=== PATIENT | female | born 1930 | race Caucasian/White ===

== ENCOUNTER 2017-05-05 15:06 | Inpatient (IN) | payer OTHER, MEDICAID ==
[~2017-05-05] VITALS: Ht 157.5 cm; Wt 52.2 kg
[2017-05-05 15:06] VITALS: BP_SYST 140
[~2017-05-05 15:06] MED LIST: ACET325T53 PO; ALLO100T91 PO; AMIN30LI2 PO; ANT30 PO; BETA1TAB20 PO; BISA10SU8 RC; CARB-61 PO; CARV6.2554 PO; CLOP75TA2 PO; DOCU-144 PO; DONE10TA44 PO; FENO48TA2 PO; FURO-150 PO; GLUC1VIA4 IM; HYDR-1189 PO; LOSA25TA3 PO; MEMA5TAB PO; MULT-300 PO; NA P118E RC; NUT.237L28 PO; POTA20TA83 PO; REM15 PO; ROSU20TA PO; SENN8.6T19 PO
--- NOTE | 2017-05-05 15:06 | NUR ---
BIB BLS from [facility]. Placed in room 03. Placed on compliance monitor, blood pressure machine and pulse oximeter. To gown for exam. Side rails up. Report given to ANNIE Beard.
--- NOTE | 2017-05-05 15:10 | NUR ---
Patient is brought in by bls from [facility] for rectal pain and foul smelling brown stool. Patient denies any pain. Abdomen is soft and round. Denies any pain. No other complaints/injuries per patient or as noted. Will continue to monitor.
--- NOTE | 2017-05-05 15:40 | NUR ---
GENNY Horton at Bedside.
[2017-05-05] MEDS ORDERED: REM15 PO (15:51)
[2017-05-05] MEDS ORDERED: ROSU20TA PO (15:51)
[2017-05-05] MEDS ORDERED: ASCO500T20 PO (15:51)
[2017-05-05] MEDS ORDERED: AMIN30LI2 PO (15:51)
[2017-05-05] MEDS ORDERED: MAGN400O4 PO (15:51)
[2017-05-05] MEDS ORDERED: PRO40 PO (15:51)
[2017-05-05] MEDS ORDERED: GLUC1VIA4 IM (15:51)
[2017-05-05] MEDS ORDERED: ANT30 PO (15:51)
--- NOTE | 2017-05-05 15:58 | NUR ---
# 20 gauge angiocath placed to Forearm. Use of asceptic technique. Opsite placed over site. Blood return noted. Blood for lab drawn from site. Flushed with 10 cc of normal saline. No evidence of infiltration noted. Patient tolerated well.
[2017-05-05 16:19] LABS: BASOPHILS % (AUTO) 0.4 % (0.0-2.0); EOSINOPHILS # (AUTO) 0.2 K/uL (0.0-0.4); HEMATOCRIT 29.8 % (36-48); HEMOGLOBIN 9.6 g/dL (12.0-16.0); LYMPHOCYTES # (AUTO) 0.9 K/uL (1.0-5.5); LYMPHOCYTES % (AUTO) 13.2 % (20.5-51.5); MEAN CORPUSCULAR HEMOGLOBIN 30 pg (27-31); MEAN CORPUSCULAR HGB CONC 32 % (32-36); MEAN CORPUSCULAR VOLUME 92 fL (79.0-98.0); MONOCYTES # (AUTO) 0.3 K/uL (0.0-1.0); MONOCYTES % (AUTO) 4.1 % (1.7-9.3); NEUTROPHILS # (AUTO) 5.4 K/uL (1.8-7.7); NEUTROPHILS % (AUTO) 79.3 % (40.0-70.0); PLATELET COUNT (AUTO) 205 K/uL (130-430); RED BLOOD CELL COUNT(AUTO) 3.24 MIL/uL (4.2-6.2); RED CELL DISTRIBUTION WIDTH 14.9 % (9.0-15.0); WHITE BLOOD COUNT (AUTO) 6.8 K/uL (4.8-10.8)
[2017-05-05 16:32] LABS: ANION GAP 6 (5-15); CALCIUM 9.2 mg/dL (8.4-11.0); CHLORIDE 110 mmol/L (98-107); CREATININE 2.94 mg/dL (0.55-1.30); GLUCOSE 183 mg/dL (70-99); POTASSIUM 4.6 mmol/L (3.5-5.1); SODIUM SERUM 140 mmol/L (136-145)
[2017-05-05 16:34] LABS: INR 1.1 (0.8-1.2); PROTHROMBIN TIME 11.8 SECS (9.5-12.5)
[2017-05-05 16:36] LABS: ALANINE AMINOTRANSFERASE 6 U/L (12-78); ALBUMIN 3.1 g/dL (3.4-4.8); AMYLASE 51 U/L (0-100); ASPARTATE AMINOTRANSFERASE 16 U/L (10-37); LIPASE 184 U/L (73-393); TOTAL BILIRUBIN 0.3 mg/dL (0.0-1.0); TOTAL PROTEIN, SERUM 6.8 g/dL (6.4-8.3)
[2017-05-05 16:42] LABS: UREA NITROGEN, BLOOD 107 mg/dL (8-21)
--- NOTE | 2017-05-05 17:02 | NUR ---
Patient resting quietly. No acute distress noted. Vital signs within normal range.
[2017-05-05] MEDS ORDERED: D5/0.45 NS 1,000 ML IV ONE (18:15)
[2017-05-05] MEDS ORDERED: ACETAMINOPHEN 325 MG TABLET PO PRN (18:15)
[2017-05-05] MEDS ORDERED: ONDANSETRON HCL 4 MG/2 ML VIAL IVP PRN (18:15)
[2017-05-05] MEDS ORDERED: NA PHOS,M-B/NA PHOS,DI-BA 118 ML (FLEET ENEMA) RC PRN (18:15)
[2017-05-05] MEDS ORDERED: BISACODYL 10 MG/SUPPOSITORY RC PRN (18:15)
--- NOTE | 2017-05-05 18:35 | NUR ---
Patient pulled out #20 guage angiocath in the Left Forearm. Started new IV site. # 20 gauge angiocath placed to left upper arm. Use of asceptic technique. Opsite placed over site. Blood return noted. Blood for lab drawn from site. Flushed with 10 cc of normal saline. No evidence of infiltration noted. Patient tolerated well.
--- NOTE | 2017-05-05 19:08 | NUR ---
Patient will be admitted to care of Dr. Blanco. Admitted to Telemetry unit. Will go to room 121 A. Belongings list completed. Summary report printed. Report will be given at bedside.
--- NOTE | 2017-05-05 19:08 | NUR ---
Admission Note Received patient from ER with diagnosis of acute kidney injury and chronic kidney disease. Initial Plan of Care discussed-patient verbalized understanding. Family at bedside. Oriented to room, call light, pain management and safety.
[2017-05-05 19:28] VITALS: BP_SYST 137
[2017-05-05] MEDS: LORazepam 2 MG/ML VIAL IVP PRN (20:42)
[2017-05-05] MEDS: DONEPEZIL HCL 5 MG TABLET (ARICEPT) PO SCH (20:51)
[2017-05-05] MEDS: MIRTAZAPINE 15 MG TABLET PO SCH (20:53)
[2017-05-05] MEDS: MEMANTINE HCL 5 MG TABLET PO SCH (20:53)
[2017-05-05] MEDS: CARBIDOPA/LEVODOPA 25/100 MG TABLET PO SCH (20:54)
[2017-05-05] MEDS: metroNIDAZOLE 500 MG TABLET PO SCH (20:56)
[2017-05-05] MEDS: CARVEDILOL 6.25 MG TABLET (COREG) PO SCH (20:56)
[2017-05-05] MEDS ORDERED: ROSUVASTATIN CALCIUM 5 MG/TAB (CRESTOR) PO SCH (21:00)
[2017-05-05] MEDS: ATORVASTATIN 20 MG TABLET PO SCH (21:00)
[2017-05-05] MEDS: DOCUSATE SODIUM 100 MG CAPSULE PO SCH (21:00)
[2017-05-05] MEDS: LACTOBACILLUS RHAMNOSUS GG 1 CAP CAPSULE PO SCH (21:00)
[2017-05-05] MEDS ORDERED: NUT TX GLUC INTOLER LAC FR SOY PO SCH (21:00)
[2017-05-05] MEDS: PANTOPRAZOLE SODIUM 40 MG TAB PO SCH (21:00)
--- NOTE | 2017-05-05 21:30 | NUR ---
Rounds Pt refused some of her 2100 meds. Explained risk and benefits but patient is confuse.
--- NOTE | 2017-05-05 23:30 | NUR ---
Rounds Provided snack to pt d/t c/o being hungry. No s/s of any distress noted. Bed in low position with call light within reach, will cont to monitor.
[2017-05-06] MEDS: NORMAL SALINE 5 ML DISP.SYRIN IVF SCH ×4 (00:53→21:20)
--- NOTE | 2017-05-06 01:30 | NUR ---
Partial bed bath Partial bed bath was rendered to pt with Soo SINCLAIR. No s/s of any distress noted at this time, will cont to monitor.
--- NOTE | 2017-05-06 03:31 | NUR ---
Rounds Patient is comfortably resting in bed at this time. No s/s of any distress noted. Bed in low position with side rails up x3. Call light within reach, will cont to monitor.
[2017-05-06 04:45] VITALS: BP_SYST 138
[2017-05-06 06:32] LABS: BASOPHILS % (AUTO) 0.6 % (0.0-2.0); EOSINOPHILS # (AUTO) 0.4 K/uL (0.0-0.4); EOSINOPHILS % (AUTO) 5.7 % (0.0-4.0); HEMATOCRIT 30.6 % (36-48); HEMOGLOBIN 9.7 g/dL (12.0-16.0); LYMPHOCYTES % (AUTO) 13.8 % (20.5-51.5); MEAN CORPUSCULAR HEMOGLOBIN 29 pg (27-31); MEAN CORPUSCULAR HGB CONC 32 % (32-36); MEAN CORPUSCULAR VOLUME 91 fL (79.0-98.0); MONOCYTES # (AUTO) 0.5 K/uL (0.0-1.0); MONOCYTES % (AUTO) 6.7 % (1.7-9.3); NEUTROPHILS # (AUTO) 5.2 K/uL (1.8-7.7); NEUTROPHILS % (AUTO) 73.2 % (40.0-70.0); PLATELET COUNT (AUTO) 214 K/uL (130-430); RED BLOOD CELL COUNT(AUTO) 3.37 MIL/uL (4.2-6.2); RED CELL DISTRIBUTION WIDTH 14.7 % (9.0-15.0); WHITE BLOOD COUNT (AUTO) 7.1 K/uL (4.8-10.8)
[2017-05-06 06:50] LABS: ALANINE AMINOTRANSFERASE 6 U/L (12-78); ANION GAP 6 (5-15); ASPARTATE AMINOTRANSFERASE 18 U/L (10-37); CALCIUM 9.2 mg/dL (8.4-11.0); CHLORIDE 108 mmol/L (98-107); CREATININE 2.63 mg/dL (0.55-1.30); GLUCOSE 194 mg/dL (70-99); POTASSIUM 4.2 mmol/L (3.5-5.1); SODIUM SERUM 140 mmol/L (136-145); TOTAL BILIRUBIN 0.3 mg/dL (0.0-1.0); TOTAL PROTEIN, SERUM 6.5 g/dL (6.4-8.3); UREA NITROGEN, BLOOD 94 mg/dL (8-21)
--- NOTE | 2017-05-06 07:07 | NUR ---
Final Rounds Patient is resting comfortably in bed at this time. No s/s of any distress noted. All needs met and anticipated by [facility] nurses. Bed in low position with side rails up x3. Call light in reach, will endorse.
[2017-05-06 08:00] VITALS: BP_SYST 132
--- NOTE | 2017-05-06 08:00 | NUR ---
OPENING NOTES PATIENT IS A/OX2, ONLY SPEAKS PERUVIAN, AND BECAME A LITTLE AGGRESSIVE/COMBATIVE WITH ME DURING MY ASSESSMENT. HER BREATHING IS NON-LABORED AND HER LUNGS ARE CLEAR BILATERALLY. VS ARE STABLE AND SHE IS NOT COMPLAINING OF DISCOMFORT.
[2017-05-06] MEDS: LACTOBACILLUS RHAMNOSUS GG 1 CAP CAPSULE PO SCH ×2 (09:51→20:59)
[2017-05-06] MEDS: ENOXAPARIN SODIUM 30 MG/0.3 ML SYRINGE SUBCUT SCH (09:51)
[2017-05-06] MEDS: ALLOPURINOL 100 MG TABLET (ZYLOPRIM) PO SCH (09:52)
[2017-05-06] MEDS: PANTOPRAZOLE SODIUM 40 MG TAB PO SCH ×2 (09:52→20:57)
[2017-05-06] MEDS: CARVEDILOL 6.25 MG TABLET (COREG) PO SCH ×2 (09:52→20:59)
[2017-05-06] MEDS: CARBIDOPA/LEVODOPA 25/100 MG TABLET PO SCH ×3 (09:53→20:58)
[2017-05-06] MEDS: FENOFIBRATE NANOCRYSTALLIZED 48 MG TABLET (TRICOR) PO SCH (09:53)
[2017-05-06] MEDS: MEMANTINE HCL 5 MG TABLET PO SCH ×2 (09:53→20:58)
[2017-05-06] MEDS: ASCORBIC ACID 500 MG TABLET PO SCH (09:53)
[2017-05-06] MEDS: LOSARTAN POTASSIUM 25 MG TABLET PO SCH (09:53)
[2017-05-06] MEDS: MULTIVITS,CA,MINERALS/IRON/FA 1 TABLET PO SCH (09:53)
[2017-05-06] MEDS: CLOPIDOGREL BISULFATE 75 MG TABLET PO SCH (09:53)
[2017-05-06] MEDS: metroNIDAZOLE 500 MG TABLET PO SCH ×3 (09:54→20:58)
[2017-05-06] MEDS: DOCUSATE SODIUM 100 MG CAPSULE PO SCH ×2 (09:54→20:58)
--- NOTE | 2017-05-06 10:00 | NUR ---
ROUNDS PT IS IN BED AND APPEARS TO BE SLEEPING. i CONFIRMED BED ALARM IS SET
[2017-05-06 11:47] VITALS: BP_SYST 110
--- NOTE | 2017-05-06 12:00 | NUR ---
ROUNDS PT IS STILL SLEEPING. i LET HER REST A LITTLE LONGER AND WILL WAKE HER WHEN HER LUNCH TRAY ARRIVES. FAMILY IS AT BEDSIDE
[2017-05-06] MEDS: D5/0.45 NS 1,000 ML IV SCH ×2 (13:15→21:20)
[2017-05-06] MEDS: INSULIN ASPART 100 UNITS/ML, 10 ML VIAL (NovoLOG) SUBCUT PRN (13:58)
--- NOTE | 2017-05-06 14:00 | NUR ---
ROUNDS PT IS IN BED AND IS RESTLESS. SHE STATED SHE WAS DRY AND DIDN'T NEED ANY HELP, BUT SHE WAS IN FACT WET. SHEET HEATER AND I CLEANED THE PATIENT, CHANGED THE SHEETS, AND REPOSITIONED HER FOR COMFORT.
--- NOTE | 2017-05-06 16:00 | NUR ---
ROUNDS PT IS IN BED AND APPEARS TO BE SLEEPING AGAIN.
[2017-05-06 16:25] VITALS: BP_SYST 122
--- NOTE | 2017-05-06 18:00 | NUR ---
ROUNDS PT IS SITTING UP IN BED AND IS BEING ASSISTED EATING DINNER BY A PATTERNATOR. SHE STATED SHE IS NOT IN PAIN AND IS COMFORTABLE
--- NOTE | 2017-05-06 19:00 | NUR ---
CLOSING NOTE PT IS RESTING IN BED AND APPEARS TO BE SLEEPING. SHE IS CLEAN AND DRY WITH NO S/S OF DISTRESS. REPORT ENDORSED AT BEDSIDE
[2017-05-06 20:02] VITALS: BP_SYST 130
--- NOTE | 2017-05-06 20:02 | NUR ---
OPENING NOTES PATIENT IS A/OX2. NO SIGNS OF DISTRESS. BREATHING IS NON LABORED. IV IS PATENT. VITAL SIGNS ARE STABLE. BED ALARM IS ON. PATIENT HAS NO COMPLAINTS OF PAIN. BED ALARM IS ON. CALL LIGHT IS WITHIN REACH. SAFETY MEASURES ARE IN PLACE. PATIENT INSTRUCTED TO CALL FOR ASSISTANCE. PATIENT IS CONFUSED. WILL CONTINUE TO MONITOR.
[2017-05-06] MEDS: MIRTAZAPINE 15 MG TABLET PO SCH (20:58)
[2017-05-06] MEDS: ATORVASTATIN 20 MG TABLET PO SCH (20:58)
[2017-05-06] MEDS: DONEPEZIL HCL 5 MG TABLET (ARICEPT) PO SCH (20:59)
[2017-05-06] MEDS: LORazepam 2 MG/ML VIAL IVP PRN (21:19)
--- NOTE | 2017-05-06 22:05 | NUR ---
PATIENT NEEDS PATIENT WAS GIVEN WATER. PATIENT IS RESTING COMFORTABLY IN BED. WILL CONTINUE TO MONITOR. Addendum: 05/06/17 at 2344 by Josephine Galvan RN BED ALARM IS ON. SAFETY MEASURES ARE IN PLACE.
--- NOTE | 2017-05-07 00:40 | NUR ---
ROUNDS PATIENT IS IN BED SLEEPING COMFORTABLY. NO SIGNS OF DISTRESS. BREATHING IS NON LABORED. BED ALARM IS ON. SAFETY MEASURES ARE IN PLACE. WILL CONTINUE TO MONITOR.
[2017-05-07 00:44] VITALS: BP_SYST 126
--- NOTE | 2017-05-07 02:55 | NUR ---
ROUNDS PATIENT IS IN BED SLEEPING. NO SIGNS OF DISTRESS. BREATHING IS NON LABORED. SAFETY MEASURES ARE IN PLACE. WILL CONTINUE TO MONITOR. BED ALARM IS ON. CALL LIGHT IS WITHIN REACH.
[2017-05-07 04:15] VITALS: BP_SYST 120
--- NOTE | 2017-05-07 05:10 | NUR ---
PATIENT NEEDS PATIENT WAS CLEANED OF INCONTINENT URINE AND STOOL. COOPER SINCLAIR WAS ASSISTING. PATIENT IS RESTING COMFORTABLY IN BED. BED ALARM IS ON. CALL LIGHT IS WITHIN REACH. WILL CONTINUE TO MONITOR.
[2017-05-07] MEDS: NORMAL SALINE 5 ML DISP.SYRIN IVF SCH ×3 (06:00→21:26)
--- NOTE | 2017-05-07 06:15 | NUR ---
PATIENT REFUSED MEDICATION PATIENT REFUSED ACCU-CHECK AND WATER FLUSH. PATIENT BEGAN TO YELL. PATIENT WAS EDUCATED, PATIENT REFUSED.
[2017-05-07 06:19] LABS: BASOPHILS % (AUTO) 0.6 % (0.0-2.0); EOSINOPHILS # (AUTO) 0.4 K/uL (0.0-0.4); EOSINOPHILS % (AUTO) 6.3 % (0.0-4.0); HEMATOCRIT 29.3 % (36-48); HEMOGLOBIN 9.3 g/dL (12.0-16.0); MEAN CORPUSCULAR HEMOGLOBIN 29 pg (27-31); MEAN CORPUSCULAR HGB CONC 32 % (32-36); MEAN CORPUSCULAR VOLUME 92 fL (79.0-98.0); MONOCYTES # (AUTO) 0.6 K/uL (0.0-1.0); MONOCYTES % (AUTO) 8.4 % (1.7-9.3); NEUTROPHILS # (AUTO) 4.7 K/uL (1.8-7.7); NEUTROPHILS % (AUTO) 69.7 % (40.0-70.0); PLATELET COUNT (AUTO) 215 K/uL (130-430); RED CELL DISTRIBUTION WIDTH 15.3 % (9.0-15.0); WHITE BLOOD COUNT (AUTO) 6.7 K/uL (4.8-10.8)
[2017-05-07 06:37] LABS: ALBUMIN 2.8 g/dL (3.4-4.8); ANION GAP 5 (5-15); ASPARTATE AMINOTRANSFERASE 17 U/L (10-37); CALCIUM 8.5 mg/dL (8.4-11.0); CHLORIDE 110 mmol/L (98-107); CREATININE 2.66 mg/dL (0.55-1.30); GLUCOSE 112 mg/dL (70-99); POTASSIUM 3.9 mmol/L (3.5-5.1); SODIUM SERUM 140 mmol/L (136-145); TOTAL BILIRUBIN 0.2 mg/dL (0.0-1.0); UREA NITROGEN, BLOOD 76 mg/dL (8-21)
[2017-05-07 07:27] LABS: ALANINE AMINOTRANSFERASE 6 U/L (12-78)
[2017-05-07 07:47] VITALS: BP_SYST 132
--- NOTE | 2017-05-07 07:47 | NUR ---
CLOSING NOTES PATIENT IS IN BED RESTING COMFORTABLY. NO SIGNS OF DISTRESS. BREATHING IS NON LABORED. IV IS PATENT. BED ALARM IS ON. CALL LIGHT IS WITHIN REACH. REPORT GIVEN TO ANNIE HERRERA.
--- NOTE | 2017-05-07 07:47 | NUR ---
INITIAL NOTE Received pt in bed, no s/s of distress or sob noted, pt has no c/o pain at this time, pt in stable condition, pt aaox2, pt is forgetful at times, provided pt with reality orientation. Bed at lowest position, call light within reach, will continue to monitor pt for any changes, fall precautions in place.
--- NOTE | 2017-05-07 08:01 | NUR ---
Nutrition Update Magdi Scale 15 noted. Pt admitted for Acute kidney injury, Chronic kidney disease. Diet: Cardiac, Low Cholesterol, Low Fat. 2 gm Na diet. BMI: 21 kg/m2. RD to follow per nutrition care standards.
[2017-05-07] MEDS: CLOPIDOGREL BISULFATE 75 MG TABLET PO SCH (09:04)
[2017-05-07] MEDS: CARBIDOPA/LEVODOPA 25/100 MG TABLET PO SCH ×3 (09:04→20:51)
[2017-05-07] MEDS: PANTOPRAZOLE SODIUM 40 MG TAB PO SCH ×2 (09:04→20:51)
[2017-05-07] MEDS: ALLOPURINOL 100 MG TABLET (ZYLOPRIM) PO SCH (09:04)
[2017-05-07] MEDS: metroNIDAZOLE 500 MG TABLET PO SCH ×3 (09:04→20:51)
[2017-05-07] MEDS: FENOFIBRATE NANOCRYSTALLIZED 48 MG TABLET (TRICOR) PO SCH (09:04)
[2017-05-07] MEDS: DOCUSATE SODIUM 100 MG CAPSULE PO SCH ×2 (09:04→20:51)
[2017-05-07] MEDS: MULTIVITS,CA,MINERALS/IRON/FA 1 TABLET PO SCH (09:05)
[2017-05-07] MEDS: ENOXAPARIN SODIUM 30 MG/0.3 ML SYRINGE SUBCUT SCH (09:05)
[2017-05-07] MEDS: LOSARTAN POTASSIUM 25 MG TABLET PO SCH (09:05)
[2017-05-07] MEDS: LACTOBACILLUS RHAMNOSUS GG 1 CAP CAPSULE PO SCH ×2 (09:05→20:51)
[2017-05-07] MEDS: ASCORBIC ACID 500 MG TABLET PO SCH (09:05)
[2017-05-07] MEDS: MEMANTINE HCL 5 MG TABLET PO SCH ×2 (09:05→20:51)
[2017-05-07] MEDS: CARVEDILOL 6.25 MG TABLET (COREG) PO SCH ×2 (09:05→20:55)
--- NOTE | 2017-05-07 10:20 | NUR ---
ROUNDS Pt in bed, no s/s of distress or sob noted, pt has no c/o pain at this time, pt in stable condition, pt resting comfortably, will continue to monitor pt for any changes.
[2017-05-07] MEDS: D5/0.45 NS 1,000 ML IV SCH (10:30)
[2017-05-07 12:00] VITALS: BP_SYST 107
[2017-05-07] MEDS: INSULIN ASPART 100 UNITS/ML, 10 ML VIAL (NovoLOG) SUBCUT PRN ×2 (12:00→17:11)
[2017-05-07 16:00] VITALS: BP_SYST 135
--- NOTE | 2017-05-07 18:33 | NUR ---
CLOSING NOTE Pt in bed, no s/s of distress or sob noted, pt has no c/o pain at this time, pt in stable condition, pt aaox2, pt is forgetful at times, provided pt with reality orientation. Bed at lowest position, call light within reach, will endorse care of pt to incoming nurse, fall precautions in place. All needs met throughout shift.
--- NOTE | 2017-05-07 19:08 | NUR ---
MD CALL Dr Castillo paged for order for in and out catheter for UA, awaiting call back.
--- NOTE | 2017-05-07 19:34 | NUR ---
PM Shift Assessment Received patient lying in bed, AAO x1, reoriented x4 and patient verbalized understanding but remains forgetful. Assessment complete. Patient noted to have pulled out her IV, new IV to be started. Plan of care discussed with patient and updated on board. Room near nurse's station for close monitoring. All fall and safety precautions in place, will continue to monitor closely. Addendum: 05/07/17 at 2240 by Bethany De La Torre RN Dr Castillo was called and made aware that UA has not been collected and patient is incontinent of urine, orders received for straight catheterization. Orders noted and to be carried out.
[2017-05-07 20:00] VITALS: BP_SYST 154
--- NOTE | 2017-05-07 20:00 | NUR ---
New IV Access New IV was started to left AC, #22 gauge, patient tolerated well. Good blood return noted and flushes well. IV fluids were restarted and are infusing well. Will monitor for any signs of infiltration.
[2017-05-07] MEDS: MIRTAZAPINE 15 MG TABLET PO SCH (20:50)
[2017-05-07] MEDS: DONEPEZIL HCL 5 MG TABLET (ARICEPT) PO SCH (20:51)
[2017-05-07] MEDS: ATORVASTATIN 20 MG TABLET PO SCH (20:51)
--- NOTE | 2017-05-07 22:17 | NUR ---
RN Rounds Patient is resting quietly in bed, no acute distress noted. Straight cath was done as ordered per MD for UA, patient tolerated well. Scheduled medications were crushed and administered with applesauce. Patient was cleaned and made comfortable in bed. Call light is within reach, all fall and safety precautions in place, will continue to monitor closely.
[2017-05-08 00:04] LABS: BILIRUBIN,URINE NEGATIVE (NEGATIVE); CLARITY/URINE CLOUDY (CLEAR); COLOR,URINE YELLOW (YELLOW); GLUCOSE,URINE NEGATIVE (NEGATIVE); KETONES,URINE NEGATIVE (NEGATIVE); LEUKOCYTE ESTERASE ,URINE 3+ (NEGATIVE); NITRITE, URINE NEGATIVE (NEGATIVE); PROTEIN URINE NEGATIVE (NEGATIVE); UROBILINOGEN,URINE 0.2 (0.2-1.0)
[2017-05-08 00:06] LABS: BLOOD, URINE TRACE (NEGATIVE)
[2017-05-08 00:20] VITALS: BP_SYST 153
[2017-05-08 00:20] LABS: BACTERIA,URINE MANY /HPF (None Seen); MUCUS,URINE None Seen /LPF (None Seen); WBC,URINE >100 /HPF (0-3)
--- NOTE | 2017-05-08 00:31 | NUR ---
RN Rounds Patient is resting quietly in bed, no acute distress noted. Patient is confused and states that she needs to go home now. Patient was reoriented x4, she verbalized understanding, but remains confused. Encouraged to sleep and get some rest. Made comfortable in bed, warm blanket provided for comfort. All fall and safety precautions in place, will continue to monitor closely.
--- NOTE | 2017-05-08 02:29 | NUR ---
RN Rounds Patient is sleeping, respirations are even and unlabored, no acute distress noted. No non-verbal signs of pain noted. IV fluids infusing well. Call light is within reach, all fall and safety precautions in place, will continue to monitor closely.
--- NOTE | 2017-05-08 04:32 | NUR ---
RN Rounds Patient is lying in bed awake. Noted to be incontinent of urine, patient was cleaned and made comfortable in bed. Patient remains confused, reoriented x4, she verbalized understanding. IV fluids infusing well. Call light is within reach, all fall and safety precautions in place, will continue to monitor closely.
[2017-05-08 05:37] VITALS: BP_SYST 134
[2017-05-08] MEDS: NORMAL SALINE 5 ML DISP.SYRIN IVF SCH ×2 (05:45→14:24)
[2017-05-08] MEDS: D5/0.45 NS 1,000 ML IV SCH (05:45)
[2017-05-08 06:35] LABS: BASOPHILS % (AUTO) 0.5 % (0.0-2.0); EOSINOPHILS # (AUTO) 0.4 K/uL (0.0-0.4); EOSINOPHILS % (AUTO) 7.3 % (0.0-4.0); HEMATOCRIT 27.9 % (36-48); HEMOGLOBIN 9.2 g/dL (12.0-16.0); LYMPHOCYTES # (AUTO) 0.7 K/uL (1.0-5.5); LYMPHOCYTES % (AUTO) 11.8 % (20.5-51.5); MEAN CORPUSCULAR HEMOGLOBIN 31 pg (27-31); MEAN CORPUSCULAR HGB CONC 33 % (32-36); MEAN CORPUSCULAR VOLUME 92 fL (79.0-98.0); MONOCYTES # (AUTO) 0.4 K/uL (0.0-1.0); MONOCYTES % (AUTO) 6.5 % (1.7-9.3); NEUTROPHILS # (AUTO) 4.7 K/uL (1.8-7.7); NEUTROPHILS % (AUTO) 73.9 % (40.0-70.0); PLATELET COUNT (AUTO) 198 K/uL (130-430); RED BLOOD CELL COUNT(AUTO) 3.02 MIL/uL (4.2-6.2); RED CELL DISTRIBUTION WIDTH 15.1 % (9.0-15.0); WHITE BLOOD COUNT (AUTO) 6.2 K/uL (4.8-10.8)
--- NOTE | 2017-05-08 06:40 | NUR ---
Closing Notes Patient is resting quietly in bed, no acute distress noted. Patient is stable, all needs met throughout shift. Will continue to monitor until endorsed to AM nurse at bedside.
[2017-05-08 07:03] LABS: ANION GAP 4 (5-15); CALCIUM 8.7 mg/dL (8.4-11.0); CHLORIDE 114 mmol/L (98-107); CREATININE 2.14 mg/dL (0.55-1.30); GLUCOSE 129 mg/dL (70-99); POTASSIUM 3.6 mmol/L (3.5-5.1); SODIUM SERUM 143 mmol/L (136-145); UREA NITROGEN, BLOOD 58 mg/dL (8-21)
[2017-05-08 07:22] VITALS: BP_SYST 150
[2017-05-08] MEDS: ASCORBIC ACID 500 MG TABLET PO SCH (09:48)
[2017-05-08] MEDS: metroNIDAZOLE 500 MG TABLET PO SCH ×2 (09:48→14:30)
[2017-05-08] MEDS: DOCUSATE SODIUM 100 MG CAPSULE PO SCH (09:48)
[2017-05-08] MEDS: PANTOPRAZOLE SODIUM 40 MG TAB PO SCH (09:48)
[2017-05-08] MEDS: CARBIDOPA/LEVODOPA 25/100 MG TABLET PO SCH ×2 (09:49→14:30)
[2017-05-08] MEDS: MEMANTINE HCL 5 MG TABLET PO SCH (09:49)
[2017-05-08] MEDS: CARVEDILOL 6.25 MG TABLET (COREG) PO SCH (09:49)
[2017-05-08] MEDS: FENOFIBRATE NANOCRYSTALLIZED 48 MG TABLET (TRICOR) PO SCH (09:50)
[2017-05-08] MEDS: LACTOBACILLUS RHAMNOSUS GG 1 CAP CAPSULE PO SCH (09:50)
[2017-05-08] MEDS: ALLOPURINOL 100 MG TABLET (ZYLOPRIM) PO SCH (09:50)
[2017-05-08] MEDS: LOSARTAN POTASSIUM 25 MG TABLET PO SCH (09:51)
[2017-05-08] MEDS: CLOPIDOGREL BISULFATE 75 MG TABLET PO SCH (09:51)
[2017-05-08] MEDS: MULTIVITS,CA,MINERALS/IRON/FA 1 TABLET PO SCH (09:52)
[2017-05-08] MEDS: ENOXAPARIN SODIUM 30 MG/0.3 ML SYRINGE SUBCUT SCH (09:52)
--- NOTE | 2017-05-08 10:38 | NUR ---
DISCHARGE PLANNING Faxed SNF referral to [phone] [phone]. will follow up. Addendum: 05/08/17 at 1119 by Livia Rose DP Spoke with Umm in admitting at [facility] patient assigned to room 28B RN to report [phone] bed available anytime. ANNIE Lua made aware. Called patient daughter Gali Falk [phone] who is agreeable with patient discharge back to SNF today. Called [facility] [phone] spoke with Eric barrera S transport peanut picker 3pm. Placed transportation packet in nurses station.
[2017-05-08] MEDS: INSULIN ASPART 100 UNITS/ML, 10 ML VIAL (NovoLOG) SUBCUT PRN (11:36)
[2017-05-08 12:00] VITALS: BP_SYST 135
[2017-05-08 13:50] VITALS: BP_SYST 132
--- NOTE | 2017-05-08 14:17 | NUR ---
REPORT Report given to Natalia at [facility], , spoke with Gali daughter and she stated it was fine for her mom to transfer back there.
--- NOTE | 2017-05-08 15:45 | NUR ---
PT TRANSFERRED Report given to Natalia at [place]. Transfer packet with Transfer Orders and Medication Reconciliation form given to EMT with report. Exitcare provided. [facility] ID band removed, replaced with ID band with pt's name and . IV catheter removed, intact and dressing applied, no active bleeding. All belongings sent with patient. Patient left floor via gurney escorted by EMT in no distress.
[2017-05-08 16:00] VITALS: BP_SYST 139
--- NOTE | 2017-05-08 16:24 | NUR ---
PT NOTES TIME 1100 CHART REVIEWED AND CLEARED FOR THERAPY BY NURSING, JAVIER. WENT TO SEE PATIENT AND PT REFUSED PHYSICAL THERAPY TODAY D/T FATIGUE AND TIRED. NURSING STATES PT MAY BE D/C THIS AFTERNOON. PT STATES, "I DO NOT WANT TO WALK TODAY." PT AGITATED AND WANTED TO BE LEFT ALONE. EDUCATED PT THE IMPORTANCE OF PERFORMING PHYSICAL THERAPY AND OOB ACTIVITY. NOTIFIED NURSING PT DID NOT PARTICIPATE WITH THERAPY TODAY. PVE(1) Addendum: 05/09/17 at 0749 by Aspen Rouse PT PHYSICAL THERAPY CO-SIGN The Physical Therapy Progress Notes documented by Partner Cco have been reviewed. Reviewed/Co-Signed by: Aspen Rouse PT Documentation Done by: VALDEZ GOMEZ PTA
== END 2017-05-08 15:45 | DRG 393 ==
LOC: SED 15:06 → STU 18:04
PROVIDERS: ADMIT Internal Medicine; ATTEND Internal Medicine
DX: K62.89 Other specified diseases of anus and rectum (principal); N17.0 Acute kidney failure with tubular necrosis; I13.0 Hypertensive heart and chronic kidney disease with heart failure and stage 1 through stage 4 chronic kidney disease, or unspecified chronic kidney disease; K92.2 Gastrointestinal hemorrhage, unspecified; D64.9 Anemia, unspecified; E11.22 Type 2 diabetes mellitus with diabetic chronic kidney disease; E78.5 Hyperlipidemia, unspecified; N18.9 Chronic kidney disease, unspecified; E11.51 Type 2 diabetes mellitus with diabetic peripheral angiopathy without gangrene; M10.9 Gout, unspecified; M19.90 Unspecified osteoarthritis, unspecified site; G20 Parkinson's disease; F03.90 Unspecified dementia, unspecified severity, without behavioral disturbance, psychotic disturbance, mood disturbance, and anxiety; I50.9 Heart failure, unspecified; J44.9 Chronic obstructive pulmonary disease, unspecified; I25.10 Atherosclerotic heart disease of native coronary artery without angina pectoris; K21.9 Gastro-esophageal reflux disease without esophagitis; E86.0 Dehydration; K52.9 Noninfective gastroenteritis and colitis, unspecified; K56.41 Fecal impaction; R53.81 Other malaise; Z79.899 Other long term (current) drug therapy; Z86.73 Personal history of transient ischemic attack (TIA), and cerebral infarction without residual deficits
CPT/HCPCS: 36415; 80048; 80053; 81000-TC; 82150-TC; 82962; 83690-TC; 83735-TC; 85025; 85610-TC; 85730-TC; 87081; 87086; 87186-TC; 97530-GP; 99285; J1650; J1815; J2060